=== PATIENT | female | born 1980 | race Caucasian/White ===

== ENCOUNTER 2018-04-11 21:47 | Emergency (ER) | payer OTHER ==
[2015-05-18 11:27] VITALS: BMI 30.8
--- NOTE | 2018-04-11 22:58 | OBHP ---
Datetime: 04/11/2018 22:50 IP Adm Impression: Term, intrauterine ; No Active Labor IP Admit Plan: Observation/Evaluation; Discharge home Admit Comment, IP Provider: at 38w1d reports here today c/o pelvic pressure since 7 pm today. S he denies any vaginal bleeding or leakage of fluid. Denies any frequency with dysuria. No complication during the . PNC with Dr Plummer. O Afebrile Heart: RRR Chest: CTA B/L Abd: Soft, NT, BS- present TOCO: Irregular SVE: Closed/0/-3 Assessment: IUP at 38wks False Labor NST Reactive Plan D/C Home F/U with Dr Plummer Labor Instructions given to patient. Pelvic Type - PN: Adequate Extremities - PN: Normal Abdomen - PN: Normal Back - PN: Normal Breast - PN: Normal Lungs - PN: Normal Heart - PN: Normal Thyroid - PN: Normal Neurologic - PN: Normal HEENT - PN: Normal General - PN: Normal Presentation-Admit: Vertex FHR - Baseline A Provider: 130 Membranes, Provider: Intact Gestation - Est Wks by US: 38.1 EGA AdmitDate IP: 38.1 Vital Signs Provider: Reviewed IP Chief Complaint: Maternal discomfort NICHD Variability Prov Fetus A: Moderate 6-25bpm NICHD Accel Fetus A IP Provider: [id number] FHR Category Provider Fetus A: Category I NICHD Decel Fetus A IP Provider: None Dilatation, Provider: 0 Effacement, Provider: 0 Station, Provider: -3 Genitourinary Exam: Normal DTRs - PN: Normal
[2018-04-12 03:41] VITALS: BP 122/73; PULSE 91; TEMP 98.2
== END 2018-04-11 22:45 | disposition home or self-care (01) ==
LOC: H.EROB2 21:47
DX: O47.1 False labor at or after 37 completed weeks of gestation (principal); O26.93 Pregnancy related conditions, unspecified, third trimester; R10.2 Pelvic and perineal pain; Z3A.38 38 weeks gestation of pregnancy